=== PATIENT | female | born 1955 | race Caucasian/White ===

== ENCOUNTER → 2017-06-20 | Outpatient (CLI) | payer OTHER ==
[~2017-06-20] MED LIST: HYDROCODON-ACE1 EAC7 PO; MOTRIN600 MG PO
== END | disposition home or self-care (01) ==
LOC: CDC 12:03
DX: Z01.810 Encounter for preprocedural cardiovascular examination (principal); M19.011 Primary osteoarthritis, right shoulder; M75.121 Complete rotator cuff tear or rupture of right shoulder, not specified as traumatic; R00.0 Tachycardia, unspecified; I51.7 Cardiomegaly; J98.4 Other disorders of lung; R94.31 Abnormal electrocardiogram [ECG] [EKG]
CPT/HCPCS: 93000

== ENCOUNTER 2017-07-15 15:10 | Emergency (ER) | payer OTHER ==
[~2017-07-15] VITALS: Ht 160 cm; Wt 114.7 kg
[2017-07-15 16:06] LABS: HEMOGLOBIN 11.7 G/DL (11.9-15.5); MCH 31.2 PG (29.0-34.0); MCHC 33.4 G/DL (30.0-36.0); MCV 93.3 FL (83-99); PLATELET COUNT 260 K/uL (156-360); RBC DIS.WIDTH-CV 13.2 % (11.8-14.6); RBC DIS.WIDTH-SD 45.1 % (39-53); RED BLOOD COUNT 3.75 M/uL (3.80-5.20); WHITE BLOOD COUNT 8.7 K/uL (4.1-10.2)
[2017-07-15 16:17] LABS: CHLORIDE 107 mEq/L (99-109); POTASSIUM 3.7 mEq/L (3.7-5.4); SODIUM 143 mEq/L (136-147)
[2017-07-15 16:19] LABS: GLUCOSE 86 mg/dL (70-99)
[2017-07-15 16:22] LABS: CREATININE 0.6 mg/dL (0.6-1.3); GFR ESTIMATE (CALCULATED) > 59 mL/min/
[2017-07-15 16:23] LABS: UREA NITROGEN (BUN) 17 mg/dL (9-23)
[2017-07-15 18:37] VITALS: BP 155/69
== END 2017-07-15 18:41 | disposition home or self-care (01) ==
LOC: EME 15:10
PROVIDERS: Emergency Medicine
DX: R60.0 Localized edema (principal); Z74.01 Bed confinement status; Z86.718 Personal history of other venous thrombosis and embolism; J44.9 Chronic obstructive pulmonary disease, unspecified; F32.9 Major depressive disorder, single episode, unspecified; M79.7 Fibromyalgia; K21.9 Gastro-esophageal reflux disease without esophagitis; F41.9 Anxiety disorder, unspecified; Z85.118 Personal history of other malignant neoplasm of bronchus and lung; Z87.891 Personal history of nicotine dependence
CPT/HCPCS: 71046; 80048; 81003; 83880; 85027; 93970; 99281; 99284